=== PATIENT | female | born 1970 | race Caucasian/White ===

== ENCOUNTER 2017-08-30 10:07 | Outpatient (CLI) | payer OTHER | END 2017-08-30 10:29 | disposition home or self-care (01) | LOC: MAMO-SONO 10:07 | DX: N60.02 Solitary cyst of left breast (principal); Z12.31 Encounter for screening mammogram for malignant neoplasm of breast ==

== ENCOUNTER 2018-04-29 08:38 | Outpatient (CLI) | payer OTHER | END 2018-04-29 08:40 | disposition home or self-care (01) | LOC: SONOGRAMA 08:38 | DX: N60.12 Diffuse cystic mastopathy of left breast (principal) ==

== ENCOUNTER 2019-01-24 08:47 | Outpatient (CLI) | payer OTHER | END 2019-01-24 08:57 | disposition home or self-care (01) | LOC: RAD 08:47 | DX: M79.671 Pain in right foot (principal) ==